=== PATIENT | male | born 1980 | race Caucasian/White ===

== ENCOUNTER 2020-11-09 18:14 | Emergency (ER) | payer OTHER, SELFPAY ==
--- NOTE | ~2020-11-09 | CT_ITS ---
EXAMINATION: CT abdomen pelvis w con DATE: 11/09/2020 20:31 INDICATION: Nausea. Left upper quadrant pain. TECHNIQUE: Computed tomography (CT) of the abdomen and pelvis was performed with 100 cc Omnipaque 350 intravenous contrast. The dose-length product was 575.40 mGy-cm. Automated exposure control and iter ative reconstruction technique were employed. COMPARISON: None. FINDINGS: Lung bases are unremarkable. Heart size normal. No significant pleural or pericardial effus ion. No significant vascular abnormality. No lymphadenopathy. Fatty infiltration of the liver. Contracted gallbladder. The spleen, pancreas, adrenal glands and kid neys are unremarkable. Nonobstructive bowel gas pattern. Normal appendix. Colonic diverticulosis with out evidence for diverticulitis. No abnormal pelvic masses or fluid collections. No acute osseous abn ormality. IMPRESSION: 1. No acute abdominal abnormality. Reviewed, dictated and finalized at location A.
[2020-11-09 18:19] VITALS: BP 157/91; PULSE 68; RESP 17; TEMP 36.6; O2SAT 99
[2020-11-09 18:38] LABS: Basophils Percent Auto 0.2 % (0.2-1.2); Eosinophils Absolute Auto 0.2 K/mm3 (0-0.3); Eosinophils Percent Auto 1.8 % (0-4.4); Hematocrit 45.1 % (42.0-52.0); Hemoglobin 15.3 g/dL (14.0-18.0); Immature Granulocyte Absolute 0.05 K/mm3 (0.00-0.031); Immature Granulocyte Percent A 0.6 % (0-0.5); Lymphocytes Absolute Auto 1.86 K/mm3 (0.9-3.2); Lymphocytes Percent Auto 21.5 % (18.3-44.2); Mean Corpuscular HGB Conc 33.9 g/dl (32-36); Mean Corpuscular Hemoglobin 31.2 pg (26-34); Monocytes Absolute Auto 0.5 K/mm3 (0.1-0.6); Monocytes Percent Auto 5.4 % (2.6-8.5); Neutrophils Absolute Auto 6.1 K/mm3 (1.3-6.7); Neutrophils Percent Auto 70.5 % (45.5-73.1); Platelet Count Result 155 k/mm3 (150-375); Red Cell Distribution Width 12.3 % (11.5-14.5); White Blood Count 8.7 K/mm3 (4.5-10.0)
--- NOTE | 2020-11-09 19:15 | PC.NURSE ---
Report received from CONNER Osborn. Assumed care of patient at this time. ERP in room with patient.
[2020-11-09 19:19] LABS: Add Urine Microscopic? YES; Appearance Urine Cloudy (Clear); Bacteria Urine Trace /hpf; Bilirubin Urine Negative (Negative); Blood Urine Negative (Negative); Color Urine Yellow (Yellow); Glucose Urine UA Negative (Negative); Ketones Urine 1+ mg/dL (Negative); Leukocyte Esterase Ur Negative LEU/UL (Negative); Mucus Urine Heavy /lpf; Nitrate Urine Negative (Negative); Protein Urine 1+ mg/dL (Negative); Specific Grav Ur 1.027 (1.001-1.035); Squamous Epithelial Cell Urine Rare /hpf (Few); Urobilinogen Urine Negative mg/dL (<2.0); WBC Urine 0-3 /hpf
[2020-11-09 19:24] LABS: Anion Gap 7 mmol/L (8-16); Blood Urea Nitrogen 16 mg/dL (9-20); Calcium 9.4 mg/dL (8.4-10.2); Carbon Dioxide 32 mmol/L (22-30); Chloride 101 mmol/L (98-107); Estimated CRCL calculation 108 ml/min; Estimated Glomerular Filt Rate > 60; Glucose 138 mg/dL (75-110); Potassium 3.6 mmol/L (3.4-5.0); Sodium 140 mmol/L (137-145)
--- NOTE | 2020-11-09 19:29 | ED.GENADULT ---
HPI - General Adult General Chief complaint: Abdominal Pain Stated complaint: left side pain Time Seen by Provider: 11/09/20 18:36 Source: patient Mode of arrival: ambulatory Limitations: no limitations History of Present Illness HPI narrative: Patient presents for evaluation of abdominal pain with symptom onset of Wednesday this week. States the pain was initially intermittent but is now constant. Pain is primarily in the epigastric and left upper quadrant regions. The pain is throbbing, rated 6/10. No history of similar symptoms in the past. No fever, nausea, vomiting, change in bowel pattern. Last bowel movement was earlier today, solid in consistency without the presence of blood or mucous in the stool. He woke last night with chills. No hx of abdominal surgeries. He does report drinking a few beers daily with last intake one day prior to the time of symptom onset. Denies illicit drug use. States that application of pressure with hand to abdomen helps alleviate his pain. Related Data Home Medications Medication Instructions Recorded Confirmed albuterol sulfate [Ventolin HFA] INHALATION 11/09/20 Allergies Allergy/AdvReac Type Severity Reaction Status Date / Time SHELL FISH Allergy Mild Anaphylaxis Uncoded 11/09/20 18:31 Review of Systems Review of Systems: Narrative: CONSTITUTIONAL: Reports chills last night, now resolved. Denies fever or sweats. EYES: Denies visual changes, redness, or discharge. ENT: Denies rhinorrhea, congestion, sore throat, or otalgia. CARDIOVASCULAR: Denies chest pain, palpitations, or edema. RESPIRATORY: Denies cough or dyspnea. GASTROINTESTINAL: Reports abdominal pain. Denies nausea, vomiting, or diarrhea. GENITOURINARY: Denies dysuria or hematuria. SKIN: Denies rash or itching. MUSCULOSKELETAL: Denies back pain, joint pain, or myalgia. NEUROLOGIC: Denies headache, numbness, dizziness, or weakness. PSYCHIATRIC: Denies anxiety or depression. [facility] Past Medical History Medical History No pertinent past medical history Surgical History Surgical History No pertinent past surgical history Family History Family History Mother No pertinent past medical history Social History Social History Alcohol intake: current Alcohol use details: several beers daily Substance use: never Living arrangements: with family Gender identity (if verbalized by the patient): Male Sexual Orientation (if Verbalized by the Patient): Straight or Heterosexual Spiritual care concerns: No Exam Narrative: Exam Narrative: GENERAL: Well-appearing, well-nourished, and in no acute distress. HEAD: Normocephalic, atraumatic. EYES: PERRLA and EOMI. ENT: Nares clear, no rhinorrhea or epistaxis. Mucous membranes moist. Oropharynx without tonsillar hypertrophy exudate or other lesions. Bilateral TMs pearly mccartney nonbulging NECK: Supple. No adenopathy or masses. No carotid bruits or JVD CHEST: Clear to auscultation. No respiratory distress. No wheezes rales or rhonchi HEART: Regular rate and rhythm. No murmur heard. Normal peripheral pulses. ABDOMEN: Soft, noted in epigastric region and left upper quadrant without rebound. Abdomen is nondistended, normal active bowel sounds. EXTREMITIES: Normal range of motion. No edema. SKIN: Warm, dry, no rash. NEURO: No focal deficits. Alert and oriented x3. PSYCH: Normal mood and affect. Course Course Emergency Course: Is a 40-year-old male who presented with complaints of abdominal pain. Initial suspicion was for pancreatitis based on reported alcohol consumption. Lipase was normal as were LFTs. CT abdomen pelvis was negative for acute process. Patient likely needs further GI work-up but does not appear to have an un
[2020-11-09 19:48] LABS: Lipase 73 U/L (23-300)
[2020-11-09 19:57] LABS: Alanine Aminotransferase 44 U/L (4-50); Albumin Level 4.5 g/dL (3.5-5.1); Alkaline Phosphatase 63 U/L (38-126); Aspartate Amino Transferase 33 U/L (17-59); Bilirubin,Total 0.6 mg/dL (0.2-1.3)
--- NOTE | 2020-11-09 20:28 | PC.NURSE ---
Patient in CT at this time.
[2020-11-09 20:41] VITALS: BP 131/82; PULSE 56; RESP 18; TEMP 36.6; O2SAT 99
== END 2020-11-09 21:13 | disposition home or self-care (01) ==
PROVIDERS: Emergency Medicine; Emergency Provider Nurse Practitioner; PCP Family Medicine
DX: R31.29 Other microscopic hematuria (principal); R10.13 Epigastric pain
CPT/HCPCS: 36415; 74177; 80048; 80076; 81001; 83690; 85025; 99284; Q9967

== ENCOUNTER 2022-06-08 12:25 | Emergency (ER) | payer OTHER, SELFPAY ==
--- NOTE | ~2022-06-08 | XR_ITS ---
EXAMINATION: XR ankle LT min 3V DATE: 06/08/2022 13:23 INDICATION: Medial and lateral left ankle pain post fall TECHNIQUE: Anteroposterior, oblique, mortise, and lateral views of the left ankle were obtained. COMPARISON: None. FINDINGS: Alignment is normal. No fracture. Joint spaces are well maintained. Small plantar calcaneal spur. No ankle joint effusion. Soft tissue swelling about the lateral malleolus. IMPRESSION: 1. No acute osseous abnormality. Reviewed, dictated and finalized at location A. 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
[2022-06-08 12:28] VITALS: BP 163/93; PULSE 77; RESP 18; TEMP 36.4; O2SAT 97
--- NOTE | 2022-06-08 14:04 | ED.LOWEXIN ---
HPI - Extremity Injury (Lower) General Chief Complaint: Extremity Injury, Lower Stated Complaint: left ankle injury from a fall Time Seen by Provider: 06/08/22 13:34 History of Present Illness HPI Narrative: Patient is a 41-year-old male here for evaluation of left ankle pain after falling on ice earlier today. Reports pain to the medial and lateral malleolus. patient states that he is able to stand but the ankle begins to hurt when he takes steps. Denies any numbness or tingling. Took 1 ibuprofen without relief of his pain. Denies further injuries in the accident. Related Data Home Medications Medication Instructions Recorded Confirmed albuterol sulfate 90 mcg/actuation inhalation 11/09/20 aerosol inhaler (Ventolin HFA) Allergies Allergy/AdvReac Type Severity Reaction Status Date / Time SHELL FISH Allergy Mild Anaphylaxis Uncoded 11/09/20 18:31 Review of Systems Review of Systems: Gen.: Denies fevers or chills Eyes: Denies eye pain or visual change ENT: Denies congestion Respiratory: Denies shortness of breath or cough CV: Denies chest pain or palpitations GI: Denies abdominal pain nausea, emesis or diarrhea denies burning, urgency, frequency or hematuria Musculoskeletal: Reports left ankle pain. Neuro: Denies numbness, tingling, weakness or focal weakness Skin: Denies rash Except as documented, all other systems reviewed and negative [facility] Past Medical History Medical History No pertinent past medical history Surgical History Surgical History No pertinent past surgical history Family History Family History Mother No pertinent past medical history Social History Social History Alcohol intake: current Alcohol use details: several beers daily Substance use: never Gender identity (if verbalized by the patient): Male Sexual Orientation (if Verbalized by the Patient): Straight or Heterosexual Spiritual care concerns: No Exam Narrative: APPEARANCE: Well appearing, no pain in distress, well-nourished. Head: Normocephalic and atraumatic. EYES: PERRLA/EOMI, conjunctivae clear NOSE: No nasal drainage EARS: External ear normal in appearance THROAT: Oropharynx is clear. Mucous membranes are moist. NECK: Supple. No adenopathy, no masses. RESPIRATORY: Airway patent, respirations nonlabored. Clear to auscultation bilaterally, no rales, rhonchi, wheezing. CARDIOVASCULAR: Regular rate and rhythm without murmurs, rubs, or gallops. ABDOMINAL: Normoactive bowel sounds. Soft, nontender, nondistended. No rebound tenderness or guarding. MUSCULOSKELETAL: No bony tenderness palpation of medial or lateral malleolus. No obvious deformity. Mild swelling to left lateral malleolus. No bony tenderness to tarsal bones. Compartments are soft. Full range of motion in foot; sensation is intact throughout. No tenderness to palpation of patella tibia or fibula. NEURO: Normal speech. No focal neurologic deficits. SKIN: Skin is warm and dry. No rashes. PSYCHIATRIC: Normal affect/mood.. Course Vital Signs Vital signs: Vital Signs Temperature 97.5 F L 06/08/22 12:28 Pulse Rate 77 06/08/22 12:28 Respiratory Rate 18 06/08/22 12:28 Blood Pressure 163/93 H 06/08/22 12:28 Pulse Oximetry 97 06/08/22 12:28 Temperature 97.5 F L 06/08/22 12:28 Pulse Rate 77 06/08/22 12:28 Respiratory Rate 18 06/08/22 12:28 Blood Pressure 163/93 H 06/08/22 12:28 Pulse Oximetry 97 06/08/22 12:28 MDM - Extremity Injury (Lower) MDM Narrative Medical decision making narrative: 41-year-old male here for evaluation of ankle pain after a fall today. Patient is nontoxic-appearing and has normal vital signs aside from slight elevation in his blood pressure. He
== END 2022-06-08 15:25 | disposition home or self-care (01) ==
PROVIDERS: Emergency Provider Physician Assistant; PCP Family Medicine
DX: S93.402A Sprain of unspecified ligament of left ankle, initial encounter (principal); S96.912A Strain of unspecified muscle and tendon at ankle and foot level, left foot, initial encounter; W00.0XXA Fall on same level due to ice and snow, initial encounter
CPT/HCPCS: 73610; 99283